=== PATIENT | female | born 1970 | race Two or more races ===

== ENCOUNTER 2025-01-16 12:37 | Emergency (ER) | payer MEDICAID, OTHER ==
[~2025-01-16] VITALS: Ht 162.6 cm; Wt 79.1 kg
--- NOTE | 2025-01-16 14:01 | ED.PDOC ---
HPI Comments A 54 YEAR OLD FEMALE PRESENTS TO THE ED WITH COMPLAINT OF 0N AND OFF HTN AND CHEST TIGHTNESS WITH BURNING PAIN SENSATION. PATIENT REPORTS THAT SHE HAS BEEN EXPERIENCING SUBSTERNAL CHEST TIGHTNESS AND BURNING SENSATION FOR THE PAST 10 DAYS. PATIENT RELAYS THAT HER BP HAS BEEN RUNNING HIGH OVER THE PAST 10 DAYS WELL. PATIENT STATES SHE TAKES LOSARTAN 50MG TWICE A DAY. PATIENT DENIES FEVER, CHILLS, SHORTNESS OF BREATH, ABDOMINAL PAIN, NAUSEA, VOMITING, HEADACHE, OR OTHER COMPLAINTS. NO OTHER SYMPTOMS OR MODIFYING FACTORS AT THIS TIME. PATIENT IS ALERT, ORIENTED X 4, AND HAS STEADY GAIT. Chief Complaint: High Blood Pressure Time Seen by MD: 14:00 Reviewed Notes: Nurses Notes, Medications, Allergies Allergies: Coded Allergies: Tramadol (Verified Allergy, Intermediate, 01/16/25) Home Meds Active Scripts Pantoprazole Sodium Sesquihydr (Protonix) 40 Mg Tab, 40 MG PO DAILY, #30 TAB Prov:FABIANA GUPTA CHRISTIANO 01/16/25 Information Source: Patient Mode of Arrival: Ambulatory Severity: Mild Timing: Days Duration: Since onset, Days Prehospital treatment: None Location: Substernal Radiation: No Radiation Quality: Aching, Tightness Onset: At Rest Cardiac Risk Factors: HTN, None PE Risk Factors: None History of: None Associated Signs and Symptoms: None Past Medical History PAST MEDICAL HISTORY: GERD, HTN Surgical History: Cholecystectomy 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 Family History Family History: Reviewed,noncontributory to illness Social History Smoker: Non-Smoker Alcohol: Denies ETOH Use Drugs: Denies Drug Use Lives In: Home Constitutional: denies: chills, diaphoresis, fatigue, fever, malaise, sweats, weakness, others EENTM: denies: blurred vision, double vision, ear bleeding, ear discharge, ear drainage, ear pain, ear ringing, eye pain, eye redness, hearing loss, mouth pain, mouth swelling, nasal discharge, nose bleeding, nose congestion, nose pain, photophobia, tearing, throat pain, throat swelling, voice changes, others Respiratory: denies: cough, hemoptysis, orthopnea, SOB at rest, shortness of breath, SOB with excertion, stridor, wheezing, others Cardiovascular: reports: chest pain; denies: dizzy spells, diaphoresis, Dyspnea on exertion, edema, irregular heart beat, left arm pain, lightheadedness, palpitations, PND, syncope, others Gastrointestinal: denies: abdomen distended, abdominal pain, blood streaked bowels, constipated, diarrhea, dysphagia, difficulty swallowing, hematemesis, melena, nausea, poor appetite, poor fluid intake, rectal bleeding, rectal pain, vomiting, others Genitourinary: denies: abnormal vagina bleeding, burning, dyspareunia, dysuria, flank pain, frequency, hematuria, incontinence, pain, , vagina discharge, urgency, others Neurological: denies: dizziness, fainting, headache, left sided numbness, left sided weakness, numbness, paresthesia, pre-existing deficit, right sided numbness, right sided weakness, seizure, speech problems, tingling, tremors, weakness, others Musculoskeletal: denies: back pain, gout, joint pain, joint swelling, muscle pain, muscle stiffness, neck pain, others Integumetry: denies: bruises, change in color, change in hair/nails, dryness, laceration, lesions, lumps, rash, wounds, others Allergic/Immunocompromised: denies: Difficulty Healing, Frequent Infections, Hives, Itching, others Hematologic/Lymphatic: denies: anemia, blood clots, easy bleeding, easy bruising, swollen glands, others Endocrine: denies: excessive hunger, excessive sweating, excessive thirst, excessive urination, flushing, intolerance to cold, intolerance to heat, unexplained weight gain, unexplained weight loss, others Psychiatric: reports: anxiety; denies: bipolar disorder, depression, hopeless, panic disorder, schizophrenia, sleepless, suicidal, others All Other Systems: Reviewed and Negative Physical Exam General Appearance: No Apparent Distress, Normal HEENT: Normal ENT Inspection, PERRL/EOMI, Pharynx Normal, TMs Normal Neck: Full Range of Motion, Non-Tender, Normal, Normal Inspection Respiratory: Lungs Clear, No Accessory Muscle Use, No Respiratory Distress, Normal Breath Sounds, Other (TENDERNESS MIDDLE STERNUM. ) Cardiovascular: No Edema, No JVD, No Murmur, No Gallop, Normal Peripheral Pulses, Regular Rate/Rhythm Breast Exam: Deferred Gastrointestinal: No Organomegaly, Non Tender, No Pulsatile Mass, Normal Bowel Sounds, Soft Genitalia: Deferred Pelvic: Deferred Rectal: Deferred Extremities: No calf tenderness, Normal capillary refill, Normal inspection, Normal range of motion, Non-tender, No pedal edema Musculoskeletal : Apperance: Normal Neurologic: Alert, power builder developer II-XII nml as Tested, No Motor Deficits, Normal Affect, Normal Mood, No Sensory Deficits Cerebellar Function: Normal Reflexes: Normal Skin: Dry, Normal Color, Warm Peripheral Pulses: 2+ carotid (R), 2+ carotid (L) Lymphatic: No Adenopathy EKG EKG : Pulse Rate (adult): 92 [place]: Normal Block: None Hypertrophy: None ST: Normal Was a procedure done? Was a procedure done?: No CP Differential Dx Differential Diagnosis: Anxiety / Panic Attack, Hyperventilation, KS Differential Diagnosis: HTN Essential Differential Diagnosis: Chest Wall Pain, Esophageal reflux/spasm X-Ray, Labs, Meds, VS Vital Signs Date Time Temp Pulse Resp B/P (MAP) Pulse Ox O2 Delivery O2 Flow Rate FiO2 01/16/25 15:32 92 01/16/25 13:26 92 01/16/25 12:41 98.0 109 18 121/67 98 98.0 Lab Test 01/16/25 13:41 Range/Units White Blood Count 8.7 4.4-10.8 10^3/uL Red Blood Count 4.97 4.0-5.20 10^6/uL Hemoglobin 15.3 12.2-16.2 g/dL Hematocrit 44.7 36.0-46.0 % Mean Corpuscular Volume 90.0 80.0-100.0 fL Mean Corpuscular Hemoglobin 30.7 28.0-32.0 pg Mean Corpuscular Hemoglobin Concent 34.1 32.0-36.0 g/dL Red Cell Distribution Width 12.8 11.8-14.3 % Platelet Count 222 140-450 10^3/uL Mean Platelet Volume 9.5 6.9-10.8 fL Neutrophils (%) (Auto) 71.5 37.0-80.0 % Lymphocytes (%) (Auto) 24.1 10.0-50.0 % Monocytes (%) (Auto) 3.3 0.0-12.0 % Eosinophils (%) (Auto) 0.5 0.0-7.0 % Basophils (%) (Auto) 0.6 0.0-2.0 % Neutrophils # (Auto) 6.2 1.6-8.6 10 ^3/uL Lymphocytes # (Auto) 2.1 0.4-5.4 10 ^3/uL Monocytes # (Auto) 0.3 0-1.3 10 ^3/uL Eosinophils # (Auto) 0 0-0.8 10 ^3/uL Basophils # (Auto) 0.1 0-0.2 10 ^3/uL Nucleated Red Blood Cells 0.0 % Sodium Level 142 136-145 mmol/L Potassium Level 3.6 3.5-5.1 mmol/L Chloride Level 103 98-107 mmol/L Carbon Dioxide Level 28 20-31 mmol/L Anion Gap 11 5-15 Blood Urea Nitrogen 10 9-23 mg/dL Creatinine 0.78 0.550-1.02 mg/dL Glomerular Filtration Rate Calc 91 >90 mL/min BUN/Creatinine Ratio 12.8 10.0-20.0 Serum Glucose 132 H 74-106 mg/dL Calcium Level 9.9 8.7-10.4 mg/dL Troponin I High Sensitivity < 3 L </=34 ng/L X-Ray, Labs, Meds, VS Comment EXTERNAL MEDICAL RECORDS REVIEWED: [NONE] INDEPENDENT HISTORIANS: [NONE] SOCIAL DETERMINANTS OF HEALTH: [NONE] LABS ORDERED: CBC, BMP, TROPONIN, EKG REVIEWED AND INTERPRETED RESULTS: NORMAL IMAGING ORDERED: NONE TREATMENTS ORDERED: NONE PROCEDURES PERFORMED: NONE CRITICAL CARE TIME: NONE I HAVE DISCUSSED THE PATIENT WITH THE ATTENDING PHYSICIAN DR. RODRIGUEZ AND HE AGR EES WITH THE PATIENT'S PLAN OF CARE AND DISPOSITION. BASED ON HISTORY OF PRESENT ILLNESS, AND PHYSICAL EXAM, PATIENT WILL BE DI SCHARGED HOME. DISCUSSED PLAN FOR DISCHARGE HOME. SHARED DECISION MAKING: DISCUSSED WITH PATIENT THAT THEIR WORKUP WAS NORMAL. PATIENT INSTRUCTED TO FOLLOW UP WITH PRIMARY CARE PROVIDER IN 1-2 DAYS FOR RE- EVALUATION OF SYMPTOMS. PATIENT VERBALIZES UNDERSTANDING TO RETURN TO ED FOR NEW OR WORSENING SYMPTOMS OR IF FOLLOW UP WITH PCP CANNOT BE OBTAINED. PATIENT FEELS COMFORTABLE GOING HOME AT THIS TIME. ALL QUESTIONS ADDRESSED AT TIME OF DISCHARGE. Time of 1ST Reevaluation: 14:15 Reevaluation 1ST: Unchanged Patient Education/Counseling: Diagnosis, Treatment Family Education/Counseling: No Family Present SEPSIS Sepsis Screen Date sepsis recognized/suspect: Jan 16, 2025 Time Sepsis recognized/suspect: 1245 Recent Procedure: No On Antibiotic Therapy: No Respiratory Rate >20: No Heart Rate >90: No Temp<36 C (96.8 F) or >38.3 C: No SBP <90 or MAP <65 mmHG: No New Acute Mental Status Change: No Is the patient on CPAP, BIPAP,: No Physician Orders Electrocardigram (01/16/25 13:19) Vital Signs Date Time Temp Pulse Resp B/P (MAP) Pulse Ox O2 Delivery O2 Flow Rate FiO2 01/16/25 15:32 92 01/16/25 13:26 92 01/16/25 12:41 98.0 109 18 121/67 98 98.0 Laboratory Tests Test 01/16/25 13:41 White Blood Count 8.7 10^3/uL (4.4-10.8) Departure 1 Departure Time of Disposition: 15:52 Impression: Primary Impression: HTN (hypertension) Qualified Codes: I10 - Essential (primary) hypertension Additional Impression: GERD (gastroesophageal reflux disease) Qualified Codes: K21.9 - Gastro-esophageal reflux disease without esophagitis Disposition: HOME / SELF CARE / HOMELESS Condition: Stable Additional Instructions: FOLLOW-UP WITH PCP IN 1 TO 2 DAYS. TAKE MEDICATIONS PRESCRIBED. RETURN TO ED FOR ANY NEW OR WORSENING SYMPTOMS. e-Prescriptions Pantoprazole Sodium Sesquihydr (Protonix) 40 Mg Tab 40 MG PO DAILY, #30 TAB Prov: FAIBANA GUPTA 01/16/25 Discharged With: Self Critical Care Note Critical Care Time?: No Stability Stability form required: No Heart Score Heart Score: Heart Score Response (Comments) Value History Moderate Suspicious 1 EKG Normal 0 Age 45-64 1 Risk Factors 1 or 2 risk factors 1 Troponin Normal limit 0 Total 3 I personally scribed for FABIANA GUPTA ([email or web address]) on 01/16/25 at 14:01. Electronically submitted by Saqib Roche ([email or web address]). I personally scribed for FABIANA GUPTA ([email or web address]) on 01/16/25 at 15:38. Electronically submitted by Saqib Roche ([email or web address]). FABIANA GUPTA Jan 16, 2025 14:01
[2025-01-16 14:20] LABS: Chloride 103 mmol/L (98-107); Hematocrit 44.7 % (36.0-46.0); Hemoglobin 15.3 g/dL (12.2-16.2); Mean Corpuscular Hemoglobin 30.7 pg (28.0-32.0); Mean Corpuscular Volume 90.0 fL (80.0-100.0); Nucleated Red Blood Cells % 0.0 %; Potassium 3.6 mmol/L (3.5-5.1); Sodium 142 mmol/L (136-145)
[2025-01-16 14:21] LABS: Anion Gap 11 (5-15); Carbon Dioxide 28 mmol/L (20-31)
[2025-01-16 14:22] LABS: Calcium 9.9 mg/dL (8.7-10.4)
[2025-01-16 14:27] LABS: BUN/Creatinine Ratio 12.8 (10.0-20.0); Blood Urea Nitrogen 10 mg/dL (9-23)
[2025-01-16 14:36] LABS: Glucose 132 mg/dL (74-106)
[2025-01-16] MEDS ORDERED: PANT40TA2 PO (15:44)
[2025-01-16 15:49] VITALS: BP 108/81; PULSE 88; RESP 16; TEMP 97.9; O2SAT 95
--- NOTE | 2025-01-17 17:28 | ECG ---
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
== END 2025-01-16 15:52 | disposition home or self-care (01) ==
LOC: ER 12:37
DX: I10 Essential (primary) hypertension (principal); K21.9 Gastro-esophageal reflux disease without esophagitis; Z79.899 Other long term (current) drug therapy; Z88.5 Allergy status to narcotic agent; Z90.49 Acquired absence of other specified parts of digestive tract
CPT/HCPCS: 36415; 80048; 84484; 85025; 93005

== ENCOUNTER 2025-02-22 17:12 | Inpatient (IN) | payer MEDICAID ==
[~2025-02-22] VITALS: Ht 162.6 cm; Wt 78.5 kg
[~2025-02-22 17:12] MED LIST: PANT40TA2 PO
[2025-02-22 17:55] LABS: Hematocrit 39.3 % (36.0-46.0); Hemoglobin 13.7 g/dL (12.2-16.2); Mean Corpuscular Hemoglobin 31.3 pg (28.0-32.0); Mean Corpuscular Volume 89.4 fL (80.0-100.0); Nucleated Red Blood Cells % 0.0 %
[2025-02-22 18:03] LABS: Chloride 103 mmol/L (98-107); Potassium 3.6 mmol/L (3.5-5.1); Sodium 139 mmol/L (136-145)
[2025-02-22 18:04] LABS: Calcium 10.3 mg/dL (8.7-10.4)
[2025-02-22 18:09] LABS: BUN/Creatinine Ratio 15.0 (10.0-20.0)
--- NOTE | 2025-02-22 18:10 | ED.PDOC ---
HPI (NEURO) HPI Comments This is a 54 year old female presenting to the ED with chief complaint of dizziness. Patient reports that she has been experiencing dizziness with associated nausea, headache and anxiety since 12pm today. Patient relays that she noted that her BP was more elevated than usual today, so she took 2 doses of her BP medication with relief in her BP now noted in triage. Patient notes her symptoms have not gone away. Patient denies any chest pain, SOB, vomiting, diarrhea, abdominal pain, or syncope. 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 Hx Family History Family History: Reviewed,noncontributory to illness Social History Smoker: Non-Smoker Alcohol: Denies ETOH Use Drugs: Denies Drug Use Lives In: Home Constitutional: denies: chills, diaphoresis, fatigue, fever, malaise, sweats, weakness, others EENTM: denies: blurred vision, double vision, ear bleeding, ear discharge, ear drainage, ear pain, ear ringing, eye pain, eye redness, hearing loss, mouth pain, mouth swelling, nasal discharge, nose bleeding, nose congestion, nose pain, photophobia, tearing, throat pain, throat swelling, voice changes, others Respiratory: denies: cough, hemoptysis, orthopnea, SOB at rest, shortness of breath, SOB with excertion, stridor, wheezing, others Cardiovascular: denies: chest pain, dizzy spells, diaphoresis, Dyspnea on exertion, edema, irregular heart beat, left arm pain, lightheadedness, palpitations, PND, syncope, others Gastrointestinal: reports: nausea; denies: abdomen distended, abdominal pain, blood streaked bowels, constipated, diarrhea, dysphagia, difficulty swallowing, hematemesis, melena, poor appetite, poor fluid intake, rectal bleeding, rectal pain, vomiting, others Genitourinary: denies: abnormal vagina bleeding, burning, dyspareunia, dysuria, flank pain, frequency, hematuria, incontinence, pain, , vagina discharge, urgency, others Neurological: reports: dizziness, headache; denies: fainting, left sided numbness, left sided weakness, numbness, paresthesia, pre-existing deficit, right sided numbness, right sided weakness, seizure, speech problems, tingling, tremors, weakness, others Musculoskeletal: denies: back pain, gout, joint pain, joint swelling, muscle pain, muscle stiffness, neck pain, others Integumetry: denies: bruises, change in color, change in hair/nails, dryness, laceration, lesions, lumps, rash, wounds, others Allergic/Immunocompromised: denies: Difficulty Healing, Frequent Infections, Hives, Itching, others Hematologic/Lymphatic: denies: anemia, blood clots, easy bleeding, easy bruisin g, swollen glands, others Endocrine: denies: excessive hunger, excessive sweating, excessive thirst, excessive urination, flushing, intolerance to cold, intolerance to heat, unexplained weight gain, unexplained weight loss, others Psychiatric: reports: anxiety; denies: bipolar disorder, depression, hopeless, panic disorder, schizophrenia, sleepless, suicidal, others All Other Systems: Reviewed and Negative Physical Exam General Appearance: No Apparent Distress, Other (Anxious appearing) HEENT: Normal ENT Inspection, Pharynx Normal, TMs Normal Neck: Full Range of Motion, Non-Tender, Normal, Normal Inspection Respiratory: Chest Non-Tender, Lungs Clear, No Accessory Muscle Use, No Respiratory Distress, Normal Breath Sounds Cardiovascular: No Edema, No JVD, No Murmur, No Gallop, Normal Peripheral Pulses, Regular Rate/Rhythm Breast Exam: Deferred Gastrointestinal: No Organomegaly, Non Tender, No Pulsatile Mass, Normal Bowel Sounds, Soft Genitalia: Deferred Pelvic: Deferred Rectal: Deferred Extremities: No calf tenderness, Normal capillary refill, Normal inspection, Normal range of motion, Non-tender, No pedal edema Musculoskeletal : Apperance: Normal Neurologic: Alert, museum registrar II-XII nml as Tested, No Motor Deficits, Normal Affect, Normal Mood, No Sensory Deficits Cerebellar Function: Normal Reflexes: Normal Skin: Dry, Normal Color, Warm Lymphatic: No Adenopathy Was a procedure done? Was a procedure done?: No Differential Diagnosis (SZ) Seizure: N/A CVA: Hypoxemia Headache: Cluster, Migraine, CVA, Subarachnoid Hemorrhage, Subdural Hemorrhage, Mass Lesion, Sinusitis X-Ray, Labs, Meds, VS Vital Signs Date Time Temp Pulse Resp B/P (MAP) Pulse Ox O2 Delivery O2 Flow Rate FiO2 02/22/25 17:24 85 02/22/25 17:15 97.7 84 18 144/80 99 97.7 Lab Test 02/22/25 18:22 02/22/25 17:41 02/22/25 17:27 Range/Units Troponin I High Sensitivity < 3 L < 3 L </=34 ng/L White Blood Count 10.2 4.4-10.8 10^3/uL Red Blood Count 4.39 4.0-5.20 10^6/uL Hemoglobin 13.7 12.2-16.2 g/dL Hematocrit 39.3 36.0-46.0 % Mean Corpuscular Volume 89.4 80.0-100.0 fL Mean Corpuscular Hemoglobin 31.3 28.0-32.0 pg Mean Corpuscular Hemoglobin Concent 34.9 32.0-36.0 g/dL Red Cell Distribution Width 12.7 11.8-14.3 % Platelet Count 195 140-450 10^3/uL Mean Platelet Volume 9.8 6.9-10.8 fL Neutrophils (%) (Auto) 81.1 H 37.0-80.0 % Lymphocytes (%) (Auto) 15.4 10.0-50.0 % Monocytes (%) (Auto) 2.9 0.0-12.0 % Eosinophils (%) (Auto) 0.1 0.0-7.0 % Basophils (%) (Auto) 0.5 0.0-2.0 % Neutrophils # (Auto) 8.2 1.6-8.6 10 ^3/uL Lymphocytes # (Auto) 1.6 0.4-5.4 10 ^3/uL Monocytes # (Auto) 0.3 0-1.3 10 ^3/uL Eosinophils # (Auto) 0 0-0.8 10 ^3/uL Basophils # (Auto) 0 0-0.2 10 ^3/uL Nucleated Red Blood Cells 0.0 % Sodium Level 139 136-145 mmol/L Potassium Level 3.6 3.5-5.1 mmol/L Chloride Level 103 98-107 mmol/L Carbon Dioxide Level 22 20-31 mmol/L Anion Gap 14 5-15 Blood Urea Nitrogen 9 9-23 mg/dL Creatinine 0.60 0.550-1.02 mg/dL Glomerular Filtration Rate Calc 107 >90 mL/min BUN/Creatinine Ratio 15.0 10.0-20.0 Serum Glucose 125 H 74-106 mg/dL Calcium Level 10.3 8.7-10.4 mg/dL POC Glucose 131 H 70-106 mg/dl Time of 1ST Reevaluation: 19:05 Reevaluation 1ST: Improved Patient Education/Counseling: Diagnosis, Treatment Family Education/Counseling: No Family Present Departure 1 Departure Time of Disposition: 20:15 (Patient home with worsening dizziness and weakness. With the patient for further workup and expert consultation) Impression: Primary Impression: Near syncope Additional Impression: Generalized weakness Disposition: ADMITTED INPATIENT Admit to: Med Surg Condition: Serious Critical Care Note Critical Care Time?: No Stability Stability form required: No Heart Score Heart Score: Heart Score Response (Comments) Value History N/A 0 EKG N/A 0 Age N/A 0 Risk Factors N/A 0 Troponin N/A 0 Total 0 I personally scribed for ELI ESQUIVEL MD ([email or web address]) on 02/22/25 at 18:10. Electronically submitted by Saqib Roche ([email or web address]). ELI ESQUIVEL MD Feb 22, 2025 18:10
--- NOTE | 2025-02-22 18:11 | DVH ---
CHEST RADIOGRAPH Indication: dizziness Technique: Single frontal view of the chest was obtained Comparison: None FINDINGS: Lines and Tubes: None Lungs: No focal consolidation. Pleura: No effusion. No pneumothorax. Cardiomediastinal contours: Unremarkable Bones: No acute osseous abnormality. IMPRESSION: 1. No acute cardiopulmonary disease.
[2025-02-22 18:13] LABS: Blood Urea Nitrogen 9 mg/dL (9-23); Glucose 125 mg/dL (74-106)
[2025-02-22 18:54] LABS: Anion Gap 14 (5-15); Carbon Dioxide 22 mmol/L (20-31)
--- NOTE | 2025-02-22 18:57 | DVH ---
EXAM: CT HEAD WITHOUT CONTRAST INDICATION: dizziness TECHNIQUE: CT of the head without intravenous contrast. Radiation Dose : 1. Head: CT Dose: CTDI volume is 53.99 mGy. Dose-length product is 863.9 mGy*cm The dose indicators for CT are the volume Computed Tomography (CT) Dose Index (CTDIvol) and the Dose Length Product (DLP), and are measured in units of mGy and mGy-cm, respectively. These indicators are not patient dose, but values generated from the CT scanner acquisition factors. The report includes radiation exposure data for exposures received during this examination. COMPARISON: None FINDINGS: There is no evidence of acute intracranial hemorrhage, extra-axial collection, mass effect, midline shift, herniation or hydrocephalus. The ventricles, sulci and cisterns are age appropriate. The stahl-white differentiation is intact. The visualized paranasal sinuses and mastoid air cells are clear. The surrounding soft tissues and osseous structures are unremarkable. IMPRESSION: No acute intracranial abnormality. Radiation optimization: All CT scans at this facility use at least one of these dose optimization techniques: automated exposure control mA and/or kV adjustment per patient size (includes targeted exams where dose is matched to clinical indication) or iterative reconstruction.
[2025-02-22] MEDS: METOCLOPRAMIDE HCL 5MG/ml INJ 2ml VIAL IV ONE (21:40)
[2025-02-22] MEDS: ACETAMINOPHEN 325 MG TAB PO ONE (21:40)
[2025-02-22] MEDS: KETOROLAC TROMETH 30 MG/ML 1ML VIAL IV ONE (21:40)
--- NOTE | 2025-02-22 22:42 | DVHHPRES ---
History of Present Illness Resident Creating Document: SILAS OWEN History of Present Illness Ms Laura Pimentel, 54-year-old Moldovan-speaking female with past medical history of hypertension presented to the ER with the complaints of headache and nausea and vomiting. On home blood pressure monitoring it was higher than usual, 140s and and 90s. She reports the global headache started since last 2 months, intermittent. She does not have any diarrhea, no recent sick contacts or travel history. Vomiting not mixed with blood. She also reports having chest pain, describing is pressure-like sensation, radiating to back. She also reports having gastritis. She denies any chest pain, shortness of breath, fever, urinary symptoms, constipation or any other complaints. Past medical history: As above Past surgical history: Cholecystectomy Allergies: None Denies drugs, alcohol, smoking. Family history: Noncontributory Code status: Full code Review of Systems Allergies: Coded Allergies: Tramadol (Verified Allergy, Intermediate, 01/16/25) Exam Vital Signs Vital Signs Date Time Temp Pulse Resp B/P (MAP) Pulse Ox O2 Delivery O2 Flow Rate FiO2 02/22/25 21:38 98.1 82 16 138/88 (105) 100 98.1 Labs/Xrays Labs Test 02/22/25 20:50 02/22/25 17:41 02/22/25 17:27 Range/Units Troponin I High Sensitivity < 3 L </=34 ng/L White Blood Count 10.2 4.4-10.8 10^3/uL Red Blood Count 4.39 4.0-5.20 10^6/uL Hemoglobin 13.7 12.2-16.2 g/dL Hematocrit 39.3 36.0-46.0 % Mean Corpuscular Volume 89.4 80.0-100.0 fL Mean Corpuscular Hemoglobin 31.3 28.0-32.0 pg Mean Corpuscular Hemoglobin Concent 34.9 32.0-36.0 g/dL Red Cell Distribution Width 12.7 11.8-14.3 % Platelet Count 195 140-450 10^3/uL Mean Platelet Volume 9.8 6.9-10.8 fL Neutrophils (%) (Auto) 81.1 H 37.0-80.0 % Lymphocytes (%) (Auto) 15.4 10.0-50.0 % Monocytes (%) (Auto) 2.9 0.0-12.0 % Eosinophils (%) (Auto) 0.1 0.0-7.0 % Basophils (%) (Auto) 0.5 0.0-2.0 % Neutrophils # (Auto) 8.2 1.6-8.6 10 ^3/uL Lymphocytes # (Auto) 1.6 0.4-5.4 10 ^3/uL Monocytes # (Auto) 0.3 0-1.3 10 ^3/uL Eosinophils # (Auto) 0 0-0.8 10 ^3/uL Basophils # (Auto) 0 0-0.2 10 ^3/uL Nucleated Red Blood Cells 0.0 % Sodium Level 139 136-145 mmol/L Potassium Level 3.6 3.5-5.1 mmol/L Chloride Level 103 98-107 mmol/L Carbon Dioxide Level 22 20-31 mmol/L Anion Gap 14 5-15 Blood Urea Nitrogen 9 9-23 mg/dL Creatinine 0.60 0.550-1.02 mg/dL Glomerular Filtration Rate Calc 107 >90 mL/min BUN/Creatinine Ratio 15.0 10.0-20.0 Serum Glucose 125 H 74-106 mg/dL Calcium Level 10.3 8.7-10.4 mg/dL POC Glucose 131 H 70-106 mg/dl SEPSIS Sepsis Screen Date sepsis recognized/suspect: Feb 22, 2025 Time Sepsis recognized/suspect: 2137 Recent Procedure: No On Antibiotic Therapy: No Respiratory Rate >20: No Heart Rate >90: No Temp<36 C (96.8 F) or >38.3 C: No SBP <90 or MAP <65 mmHG: No New Acute Mental Status Change: No Is the patient on CPAP, BIPAP,: No Physician Orders Electrocardigram (02/22/25 17:32) Urinalysis (02/22/25 17:31) Chest Portable (02/22/25 17:31) Head Without Contrast (02/22/25 18:04) Vital Signs Date Time Temp Pulse Resp B/P (MAP) Pulse Ox O2 Delivery O2 Flow Rate FiO2 02/22/25 21:38 98.1 82 16 138/88 (105) 100 98.1 02/22/25 17:24 85 02/22/25 17:15 97.7 84 18 144/80 99 97.7 Laboratory Tests Test 02/22/25 17:41 White Blood Count 10.2 10^3/uL (4.4-10.8) Medications Medications Dose Ordered Sig/Naeem Route Start Time Stop Time Status Last Admin Dose Admin Acetaminophen 650 mg ONCE ONCE PO 02/22/25 20:15 02/22/25 20:54 DC 02/22/25 21:40 650 MG Ketorolac Tromethamine 15 mg ONCE ONCE IV 02/22/25 20:15 02/22/25 20:54 DC 02/22/25 21:40 15 MG Metoclopramide HCl 10 mg ONCE ONCE IV 02/22/25 20:15 02/22/25 20:54 DC 02/22/25 21:40 10 MG Assessment/Plan Assessment/Plan Chest pain rule out ACS Hypertensive heart disease EKG: No acute ischemic changes Troponins: Within normal limits Losartan potassium 50 mg daily Tylenol for headache Hyperglycemia HbA1c ordered GI prophylaxis: Pantoprazole DVT prophylaxis: Patient is ambulatory Diet: Cardiac Goals of care discussed with the patient for more than 27 minutes: Full code status Case discussed with Dr. Wilkins, patient and RN Plan discussed with: Patient, Other Visit Coding STANDARD RES Billing Provider: ARAMIS WILKINS MD Date of Service if different f: Feb 23, 2025 Common Visit Codes: 63803-DHXKEOB INP/OBS CARE (HIGH) Secondary Visit Codes: 51885-OSRHESTN CARE PLAN 30 MINUTES SILAS OWEN Feb 22, 2025 22:42
[2025-02-22] MEDS ORDERED: LOSA-534 PO (22:46)
[2025-02-22] MEDS ORDERED: AMLO1TAB21 PO (22:46)
[2025-02-22] MEDS ORDERED: ROSU10TA64 PO (22:46)
[2025-02-22 23:40] LABS: Urine Protein, UAD Negative (Negative)
[2025-02-23] VITALS (8 sets, daily range): BP systolic 109–117; BP diastolic 72–74; PULSE 81–91; RESP 17–20; TEMP 96.7–98.1; O2SAT 95–98
[2025-02-23 04:21] LABS: Hematocrit 40.1 % (36.0-46.0); Hemoglobin 13.5 g/dL (12.2-16.2); Mean Corpuscular Hemoglobin 30.5 pg (28.0-32.0); Mean Corpuscular Volume 90.5 fL (80.0-100.0); Nucleated Red Blood Cells % 0.1 %
[2025-02-23 04:47] LABS: Alanine Aminotransferase 27 U/L (7-40); Anion Gap 12 (5-15); BUN/Creatinine Ratio 14.7 (10.0-20.0); Blood Urea Nitrogen 11 mg/dL (9-23); Calcium 10.2 mg/dL (8.7-10.4); Carbon Dioxide 26 mmol/L (20-31); Chloride 104 mmol/L (98-107); Glucose 90 mg/dL (74-106); Potassium 3.6 mmol/L (3.5-5.1); Sodium 142 mmol/L (136-145); Total Protein 8.0 g/dL (5.7-8.2)
[2025-02-23 05:00] LABS: Albumin 5.2 g/dL (3.2-4.8); Alkaline Phosphatase 130 U/L (46-116); Bilirubin, Total 1.3 mg/dL (0.2-1.0)
[2025-02-23] MEDS: LOSARTAN POTASSIUM 50 MG TAB PO SCH (09:59)
[2025-02-23] MEDS: PANTOPRAZOLE 40 MG TAB PO SCH (10:06)
[2025-02-23] MEDS ORDERED: [UNRECOGNIZED DRUG - CODE] PO (16:45)
[2025-02-23] MEDS ORDERED: ERGO1CAP12 PO (16:45)
[2025-02-23] MEDS: ATORVASTATIN 20 MG TAB PO SCH (21:20)
[2025-02-24] VITALS (9 sets, daily range): BP systolic 104–144; BP diastolic 62–90; PULSE 69–87; RESP 16–18; TEMP 98–98.2; O2SAT 97–99
--- NOTE | 2025-02-24 11:56 | DVHPN2 ---
Reviewed: Care Plan, H&P, Labs, Medications, Previous Orders Changes from previous H/P or p: No Changes General: Per HPI Objective Vitals Vital Signs Date Time Temp Pulse Resp B/P (MAP) Pulse Ox O2 Delivery O2 Flow Rate FiO2 02/24/25 09:00 98.1 75 16 132/88 (103) 97 98.1 02/24/25 08:05 Room Air* 0 21 Intake/Output Intake and Output 02/24/25 07:00 Intake Total 540 ml Balance 540 ml Intake Oral 540 ml # Voids 1 General Appearance: Alert, Oriented X3, Cooperative, No acute distress Cardiovascular: Regular rate, Normal S1, Normal S2 Neuro: Normal gait, Normal speech Medications Current Medications Medications Dose Ordered Sig/Naeem Route Start Time Stop Time Status Last Admin Dose Admin Losartan Potassium 50 mg DAILY PO 02/23/25 10:00 02/24/25 08:52 50 MG Pantoprazole Sodium 40 mg DAILY PO 02/23/25 10:00 02/24/25 08:52 40 MG Atorvastatin Calcium 10 mg HS PO 02/23/25 22:00 02/23/25 21:20 10 MG Acetaminophen 500 mg Q8HP PRN PO 02/23/25 04:00 Laboratory Results Laboratory Tests 02/23/25 03:35 Urinalysis Test 02/22/25 21:54 Urine Color Colorless (Yellow) Urine Clarity Clear (Clear) Urine pH 6.0 (5.0-9.0) Urine Specific [place] 1.002 (1.001-1.035) Urine Protein Negative (Negative) Urine Ketones Negative (Negative) Urine Blood Negative /uL (Negative) Urine Nitrite Negative (Negative) Urine Bilirubin Negative (Negative) Urine Urobilinogen Normal mg/dL (Negative) Urine Leukocyte Esterase Negative /uL (Negative) Urine RBC 1 /hpf (0 - 4) Urine Microscopic WBC < 1 /HPF (0-5) Urine Squamous Epithelial Cells Few /hpf (<5) Urine Bacteria None seen /hpf (None Seen) Urine Glucose Normal mg/dL (Normal) Labs and/or images reviewed: Labs reviewed by me, Image(s) reviewed by me Assessment/Plan Assessment/Plan Ms Laura Pimentel, 54-year-old Vietnamese-speaking female with past medical history of hypertension presented to the ER with the complaints of headache and nausea and vomiting. On home blood pressure monitoring it was higher than usual, 140s and and 90s. She reports the global headache started since last 2 months, intermittent. She does not have any diarrhea, no recent sick contacts or travel history. Vomiting not mixed with blood. She also reports having chest pain, describing is pressure-like sensation, radiating to back. She also reports having gastritis. She denies any chest pain, shortness of breath, fever, urinary symptoms, constipation or any other complaints. Chest pain rule out ACS -- high risk group Hypertensive heart disease EKG: No acute ischemic changes Troponins: Within normal limits Losartan potassium 50 mg daily Tylenol for headache pending ECHO Hyperglycemia HbA1c ordered GI prophylaxis: Pantoprazole DVT prophylaxis: Patient is ambulatory Diet: Cardiac Plan discussed with: Patient Date of Service: Feb 23, 2025 Billing Provider: JHONNY WOODALL DO Common Visit Codes: [id number] INP/OBS CARE(HIGH) JHONNY WOODALL DO Feb 24, 2025 11:56
--- NOTE | 2025-02-24 11:59 | DVHPN2 ---
Reviewed: Care Plan, H&P, Labs, Medications, Previous Orders Changes from previous H/P or p: No Changes General: Per HPI Objective Vitals Vital Signs Date Time Temp Pulse Resp B/P (MAP) Pulse Ox O2 Delivery O2 Flow Rate FiO2 02/24/25 09:00 98.1 75 16 132/88 (103) 97 98.1 02/24/25 08:05 Room Air* 0 21 Intake/Output Intake and Output 02/24/25 07:00 Intake Total 540 ml Balance 540 ml Intake Oral 540 ml # Voids 1 General Appearance: Alert, Oriented X3, Cooperative, No acute distress Cardiovascular: Regular rate, Normal S1, Normal S2 Neuro: Normal gait, Normal speech Medications Current Medications Medications Dose Ordered Sig/Naeem Route Start Time Stop Time Status Last Admin Dose Admin Losartan Potassium 50 mg DAILY PO 02/23/25 10:00 02/24/25 08:52 50 MG Pantoprazole Sodium 40 mg DAILY PO 02/23/25 10:00 02/24/25 08:52 40 MG Atorvastatin Calcium 10 mg HS PO 02/23/25 22:00 02/23/25 21:20 10 MG Acetaminophen 500 mg Q8HP PRN PO 02/23/25 04:00 Laboratory Results Laboratory Tests 02/23/25 03:35 Urinalysis Test 02/22/25 21:54 Urine Color Colorless (Yellow) Urine Clarity Clear (Clear) Urine pH 6.0 (5.0-9.0) Urine Specific [place] 1.002 (1.001-1.035) Urine Protein Negative (Negative) Urine Ketones Negative (Negative) Urine Blood Negative /uL (Negative) Urine Nitrite Negative (Negative) Urine Bilirubin Negative (Negative) Urine Urobilinogen Normal mg/dL (Negative) Urine Leukocyte Esterase Negative /uL (Negative) Urine RBC 1 /hpf (0 - 4) Urine Microscopic WBC < 1 /HPF (0-5) Urine Squamous Epithelial Cells Few /hpf (<5) Urine Bacteria None seen /hpf (None Seen) Urine Glucose Normal mg/dL (Normal) Labs and/or images reviewed: Labs reviewed by me, Image(s) reviewed by me Assessment/Plan Assessment/Plan Ms Laura Pimentel, 54-year-old Divehi-speaking female with past medical history of hypertension presented to the ER with the complaints of headache and nausea and vomiting. On home blood pressure monitoring it was higher than usual, 140s and and 90s. She reports the global headache started since last 2 months, intermittent. She does not have any diarrhea, no recent sick contacts or travel history. Vomiting not mixed with blood. She also reports having chest pain, describing is pressure-like sensation, radiating to back. She also reports having gastritis. She denies any chest pain, shortness of breath, fever, urinary symptoms, constipation or any other complaints. Chest pain rule out ACS -- high risk group Hypertensive heart disease EKG: No acute ischemic changes Troponins: Within normal limits Losartan potassium 50 mg daily Tylenol for headache pending ECHO Hyperglycemia HbA1c ordered GI prophylaxis: Pantoprazole DVT prophylaxis: Patient is ambulatory Diet: Cardiac pending echocardiogram Plan discussed with: Patient Date of Service: Feb 24, 2025 Billing Provider: JHONNY WOODALL DO Common Visit Codes: [id number] INP/OBS CARE(HIGH) JHONNY WOODALL DO Feb 24, 2025 11:59
[2025-02-24] MEDS: ACETAMINOPHEN 500 MG TAB or CAP PO PRN (13:54)
[2025-02-24] MEDS: ONDANSETRON HCL 4 MG/2 ML VIAL IV PRN (15:30)
--- NOTE | 2025-02-24 23:57 | DVHINCON2 ---
Date of service: Feb 24, 2025 Referring Physician Sarah Reason for Consultation Echo History of Present Illness This is a 54-year-old Dutch-speaking female with a past medical history of hypertension who presented to the ED with complaints of a headache and nausea and vomiting. On home blood pressure monitoring it was higher than usual, 140s and and 90s. She reports the global headache started since last 2 months, intermittent. She does not have any diarrhea, no recent sick contacts or travel history. She also reports having chest pain, describing is pressure-like sensation, radiating to back. She also reports having gastritis. Lab workup is grossly unremarkable. Chest x-ray showed NAD. CT head shows no acute intracranial abnormality. Troponin is negative. Patient was admitted to the hospital. I am asked to consult on this patient. Family History: Cardiovascular disease G8 MOTHER Diabetes mellitus G8 MOTHER Hypertension G8 MOTHER Allergies: Coded Allergies: Tramadol (Verified Allergy, Intermediate, 01/16/25) Home Meds Active Scripts Pantoprazole Sodium Sesquihydr (Protonix) 40 Mg Tab, 40 MG PO DAILY, #30 TAB Prov:FABIANA GUPTA 01/16/25 Reported Medications Venlafaxine Hydrochloride (Venlafaxine Hydrochloride) 37.5 Mg Tab, 1 TAB PO DAILY 02/23/25 Ergocalciferol (Vitamin D) 50,000 Unit Cap, 1 CAP PO QWEEKLY 02/23/25 Rosuvastatin Calcium (Rosuvastatin Calcium) 10 Mg Tab, 10 TAB PO 02/22/25 Amlodipine Besylate (Amlodipine Besylate) 2.5 Mg Tab, 2.5 MG PO 02/22/25 Losartan Potassium (Losartan Potassium) 50 Mg Tab, 1 TAB PO DAILY 02/22/25 Current Medications Current Medications Medications (Trade) Dose Ordered Sig/Naeem Route PRN Reason Start Time Stop Time Status Last Admin Atorvastatin Calcium (Lipitor) 10 mg HS PO 02/23/25 22:00 02/23/25 21:20 Review of Systems Constitutional: denies: chills, diaphoresis, fatigue, fever, malaise, sweats, weakness, others EENTM: denies: blurred vision, double vision, ear bleeding, ear discharge, ear drainage, ear pain, ear ringing, eye pain, eye redness, hearing loss, mouth pain, mouth swelling, nasal discharge, nose bleeding, nose congestion, nose pain, photophobia, tearing, throat pain, throat swelling, voice changes, others Respiratory: denies: cough, hemoptysis, orthopnea, SOB at rest, shortness of breath, SOB with excertion, stridor, wheezing, others Cardiovascular: denies: chest pain, dizzy spells, diaphoresis, Dyspnea on exertion, edema, irregular heart beat, left arm pain, lightheadedness, palpitations, PND, syncope, others Gastrointestinal: reports: nausea; denies: abdomen distended, abdominal pain, blood streaked bowels, constipated, diarrhea, dysphagia, difficulty swallowing, hematemesis, melena, poor appetite, poor fluid intake, rectal bleeding, rectal pain, vomiting, others Genitourinary: denies: abnormal vagina bleeding, burning, dyspareunia, dysuria, flank pain, frequency, hematuria, incontinence, pain, , vagina discharge, urgency, others Neurological: reports: dizziness, headache; denies: fainting, left sided numbness, left sided weakness, numbness, paresthesia, pre-existing deficit, right sided numbness, right sided weakness, seizure, speech problems, tingling, tremors, weakness, others Musculoskeletal: denies: back pain, gout, joint pain, joint swelling, muscle pain, muscle stiffness, neck pain, others Integumetry: denies: bruises, change in color, change in hair/nails, dryness, laceration, lesions, lumps, rash, wounds, others Allergic/Immunocompromised: denies: Difficulty Healing, Frequent Infections, Hives, Itching, others Hematologic/Lymphatic: denies: anemia, blood clots, easy bleeding, easy bruising, swollen glands, others Endocrine: denies: excessive hunger, excessive sweating, excessive thirst, excessive urination, flushing, intolerance to cold, intolerance to heat, unexplained weight gain, unexplained weight loss, others Psychiatric: reports: anxiety; denies: bipolar disorder, depression, hopeless, panic disorder, schizophrenia, sleepless, suicidal, others All Other Systems: Reviewed and Negative Vital Signs Vital Signs Date Time Temp Pulse Resp B/P (MAP) Pulse Ox O2 Delivery O2 Flow Rate FiO2 02/24/25 09:00 98.1 75 16 132/88 (103) 97 98.1 02/24/25 08:05 Room Air* 0 21 Physical Exam GENERAL: Alert and oriented x 3. No acute distress. EYES: PERRL, EOMI. Anicteric. HENT: Moist mucous membranes. LUNGS: Clear to auscultation bilaterally. CARDIOVASCULAR: Regular rate and rhythm. ABDOMEN: Soft, nontender and nondistended. EXTREMITIES: No edema. NEUROLOGIC: No focal neurological deficits. SKIN: Warm, dry. Labs/Diagnostic Data Labs Test 02/23/25 03:35 02/22/25 21:54 02/22/25 20:50 02/22/25 17:27 Range/Units White Blood Count 10.1 4.4-10.8 10^3/uL Red Blood Count 4.43 4.0-5.20 10^6/uL Hemoglobin 13.5 12.2-16.2 g/dL Hematocrit 40.1 36.0-46.0 % Mean Corpuscular Volume 90.5 80.0-100.0 fL Mean Corpuscular Hemoglobin 30.5 28.0-32.0 pg Mean Corpuscular Hemoglobin Concent 33.7 32.0-36.0 g/dL Red Cell Distribution Width 12.7 11.8-14.3 % Platelet Count 201 140-450 10^3/uL Mean Platelet Volume 9.8 6.9-10.8 fL Neutrophils (%) (Auto) 66.4 37.0-80.0 % Lymphocytes (%) (Auto) 27.2 10.0-50.0 % Monocytes (%) (Auto) 5.3 0.0-12.0 % Eosinophils (%) (Auto) 0.6 0.0-7.0 % Basophils (%) (Auto) 0.5 0.0-2.0 % Neutrophils # (Auto) 6.7 1.6-8.6 10 ^3/uL Lymphocytes # (Auto) 2.8 0.4-5.4 10 ^3/uL Monocytes # (Auto) 0.5 0-1.3 10 ^3/uL Eosinophils # (Auto) 0.1 0-0.8 10 ^3/uL Basophils # (Auto) 0 0-0.2 10 ^3/uL Nucleated Red Blood Cells 0.1 % Sodium Level 142 136-145 mmol/L Potassium Level 3.6 3.5-5.1 mmol/L Chloride Level 104 98-107 mmol/L Carbon Dioxide Level 26 20-31 mmol/L Anion Gap 12 5-15 Blood Urea Nitrogen 11 9-23 mg/dL Creatinine 0.75 0.550-1.02 mg/dL Glomerular Filtration Rate Calc 95 >90 mL/min BUN/Creatinine Ratio 14.7 10.0-20.0 Serum Glucose 90 74-106 mg/dL Hemoglobin A1c 5.3 <5.7 % A1C Calcium Level 10.2 8.7-10.4 mg/dL Total Bilirubin 1.3 H 0.2-1.0 mg/dL Aspartate Amino Transferase (AST) 19 13-40 U/L Alanine Aminotransferase (ALT) 27 7-40 U/L Alkaline Phosphatase 130 H 46-116 U/L Total Protein 8.0 5.7-8.2 g/dL Albumin 5.2 H 3.2-4.8 g/dL Vitamin B12 Level 418 211-911 pg/mL Vitamin D 25-Hydroxy 51.9 30.0-100 ng/mL Thyroid Stimulating Hormone (TSH) 2.11 0.55-4.78 uIU/mL Urine Color Colorless Yellow Urine Clarity Clear Clear Urine pH 6.0 5.0-9.0 Urine Specific [place] 1.002 1.001-1.035 Urine Protein Negative Negative Urine Ketones Negative Negative Urine Blood Negative Negative /uL Urine Nitrite Negative Negative Urine Bilirubin Negative Negative Urine Urobilinogen Normal Negative mg/dL Urine Leukocyte Esterase Negative Negative /uL Urine RBC 1 0 - 4 /hpf Urine Microscopic WBC < 1 0-5 /HPF Urine Squamous Epithelial Cells Few <5 /hpf Urine Bacteria None seen None Seen /hpf Urine Glucose Normal Normal mg/dL Troponin I High Sensitivity < 3 L </=34 ng/L POC Glucose 131 H 70-106 mg/dl Assessment Chest pain. Hypertensive heart disease. Hyperglycemia. Plan/Recommendation I agree with your ongoing assessment and care of plan. Echocardiogram. Lipitor. Losartan. GI prophylactics. Additional plan as per the hospital course. A total of 45 minutes was spent reviewing the patient record, examining the patient, making a diagnostic and therapeutic plan, discussing this plan with medical personnel, following up on diagnostic studies and following the patient for clinical stability excluding any and all procedures. At least 50% of this time was spent in direct, [id number] contact. Plan discussed with: Patient ARASH OLIVER MD Feb 24, 2025 13:21
[2025-02-25 01:00] VITALS: BP 117/73; PULSE 66; RESP 18; TEMP 97.9; O2SAT 97
[2025-02-25 05:00] VITALS: BP 120/72; PULSE 85; RESP 18; TEMP 97.8; O2SAT 96
--- NOTE | 2025-02-25 06:39 | ECG ---
[facility] Test Date: 2025-02-22 Test Time: 17:24:44 Pat Name: JOEL DAVIES Department: Room: 0220T Gender: F Beverage Specialist: JAMIE : 1970 Requested By: ELI ESQUIVEL Order Number: [id number] Reading MD: Lionel Rutherford Measurements Intervals [place] Rate: 85 P: 77 [place]: 166 QRS: 73 QRSD: 86 T: 74 QT: 407 QTc: 484 Interpretive Statements Sinus rhythm Abnormal R-wave progression, early transition ST elevation, consider inferior injury Electronically Signed On 02-28-2025 19:01:45 PST by Lionel Rutherford Please click the below link to view image of tracing.
[2025-02-25 08:00] VITALS: PULSE 100; PULSE 82; RESP 16; O2SAT 98
[2025-02-25 09:00] VITALS: BP 137/90; PULSE 82; RESP 16; TEMP 98.4; O2SAT 98
[2025-02-25 13:00] VITALS: BP 133/85; PULSE 93; RESP 16; TEMP 97.8; O2SAT 97
--- NOTE | 2025-02-25 14:19 | DVHPN2 ---
Progress Note - Dictate Date Seen: Feb 25, 2025 Medical Necessity Reason Pt with a Central, PICC or Fol: No Subjective Patient was seen and evaluated in follow up. Patient reports feeling anxious today. Denies any chest pain or SOB. Echcardiogram is pending. Telemetry reviewed. vital signs Vital Sign Date Time Temp Pulse Resp B/P (MAP) Pulse Ox O2 Delivery O2 Flow Rate FiO2 02/25/25 13:00 97.8 93 16 133/85 (101) 97 97.8 02/25/25 08:00 Room Air* 0 21 Total Intake and Output 02/24/25 02/24/25 02/25/25 15:00 23:00 07:00 Intake Total 720 ml 1000 ml Balance 720 ml 1000 ml medications Current Medications Medications Dose Ordered Sig/Naeem Route Start Time Stop Time Status Last Admin Dose Admin Losartan Potassium 50 mg DAILY PO 02/23/25 10:00 02/25/25 10:27 50 MG Pantoprazole Sodium 40 mg DAILY PO 02/23/25 10:00 02/25/25 10:27 40 MG Atorvastatin Calcium 10 mg HS PO 02/23/25 22:00 02/24/25 21:43 10 MG Acetaminophen 500 mg Q8HP PRN PO 02/23/25 04:00 02/24/25 13:54 500 MG Ondansetron HCl 4 mg Q4HPRN PRN IV 02/24/25 15:15 02/24/25 15:30 4 MG objective GENERAL: Alert and oriented x 3. No acute distress. EYES: PERRL, EOMI. Anicteric. HENT: Moist mucous membranes. LUNGS: Clear to auscultation bilaterally. CARDIOVASCULAR: Regular rate and rhythm. ABDOMEN: Soft, nontender and nondistended. EXTREMITIES: No edema. NEUROLOGIC: No focal neurological deficits. SKIN: Warm, dry. laboratory and microbiology Laboratory Tests 02/23/25 03:35 Test 02/23/25 03:35 Range/Units Serum Glucose 90 74-106 mg/dL Problem List Chest pain. Hypertensive heart disease. Hyperglycemia. Assessment/Plan Continued all current supportive medical care. Echocardiogram. Lipitor. Losartan. GI prophylactics. Additional plan as per the hospital course. Plan discussed with: Patient ARASH OLIVER MD Feb 25, 2025 14:19
[2025-02-25 14:22] VITALS: BP 137/90; PULSE 98; RESP 18; TEMP 36.6; O2SAT 98
--- NOTE | 2025-02-25 16:05 | DVHDS2 ---
Discharge Summary Date of Admission Feb 22, 2025 at 22:44 Date of Discharge: Feb 25, 2025 Labs/Diagnostic Data: Laboratory Results Test 02/23/25 03:35 02/22/25 21:54 02/22/25 20:50 02/22/25 17:27 White Blood Count 10.1 10^3/uL (4.4-10.8) Red Blood Count 4.43 10^6/uL (4.0-5.20) Hemoglobin 13.5 g/dL (12.2-16.2) Hematocrit 40.1 % (36.0-46.0) Mean Corpuscular Volume 90.5 fL (80.0-100.0) Mean Corpuscular Hemoglobin 30.5 pg (28.0-32.0) Mean Corpuscular Hemoglobin Concent 33.7 g/dL (32.0-36.0) Red Cell Distribution Width 12.7 % (11.8-14.3) Platelet Count 201 10^3/uL (140-450) Mean Platelet Volume 9.8 fL (6.9-10.8) Neutrophils (%) (Auto) 66.4 % (37.0-80.0) Lymphocytes (%) (Auto) 27.2 % (10.0-50.0) Monocytes (%) (Auto) 5.3 % (0.0-12.0) Eosinophils (%) (Auto) 0.6 % (0.0-7.0) Basophils (%) (Auto) 0.5 % (0.0-2.0) Neutrophils # (Auto) 6.7 10 ^3/uL (1.6-8.6) Lymphocytes # (Auto) 2.8 10 ^3/uL (0.4-5.4) Monocytes # (Auto) 0.5 10 ^3/uL (0-1.3) Eosinophils # (Auto) 0.1 10 ^3/uL (0-0.8) Basophils # (Auto) 0 10 ^3/uL (0-0.2) Nucleated Red Blood Cells 0.1 % Sodium Level 142 mmol/L (136-145) Potassium Level 3.6 mmol/L (3.5-5.1) Chloride Level 104 mmol/L (98-107) Carbon Dioxide Level 26 mmol/L (20-31) Anion Gap 12 (5-15) Blood Urea Nitrogen 11 mg/dL (9-23) Creatinine 0.75 mg/dL (0.550-1.02) Glomerular Filtration Rate Calc 95 mL/min (>90) BUN/Creatinine Ratio 14.7 (10.0-20.0) Serum Glucose 90 mg/dL (74-106) Hemoglobin A1c 5.3 % A1C (<5.7) Calcium Level 10.2 mg/dL (8.7-10.4) Total Bilirubin 1.3 mg/dL (0.2-1.0) Aspartate Amino Transferase (AST) 19 U/L (13-40) Alanine Aminotransferase (ALT) 27 U/L (7-40) Alkaline Phosphatase 130 U/L (46-116) Total Protein 8.0 g/dL (5.7-8.2) Albumin 5.2 g/dL (3.2-4.8) Vitamin B12 Level 418 pg/mL (211-911) Vitamin D 25-Hydroxy 51.9 ng/mL (30.0-100) Thyroid Stimulating Hormone (TSH) 2.11 uIU/mL (0.55-4.78) Urine Color Colorless (Yellow) Urine Clarity Clear (Clear) Urine pH 6.0 (5.0-9.0) Urine Specific [place] 1.002 (1.001-1.035) Urine Protein Negative (Negative) Urine Ketones Negative (Negative) Urine Blood Negative /uL (Negative) Urine Nitrite Negative (Negative) Urine Bilirubin Negative (Negative) Urine Urobilinogen Normal mg/dL (Negative) Urine Leukocyte Esterase Negative /uL (Negative) Urine RBC 1 /hpf (0 - 4) Urine Microscopic WBC < 1 /HPF (0-5) Urine Squamous Epithelial Cells Few /hpf (<5) Urine Bacteria None seen /hpf (None Seen) Urine Glucose Normal mg/dL (Normal) Troponin I High Sensitivity < 3 ng/L (</=34) POC Glucose 131 mg/dl (70-106) Other Laboratory Tests 02/23/25 03:35 Brief Hx & Hospital Course: Ms Laura Pimentel, 54-year-old Surinamese-speaking female with past medical history of hypertension presented to the ER with the complaints of headache and nausea and vomiting. On home blood pressure monitoring it was higher than usual, 140s and and 90s. She reports the global headache started since last 2 months, intermittent. She does not have any diarrhea, no recent sick contacts or travel history. Vomiting not mixed with blood. She also reports having chest pain, describing is pressure-like sensation, radiating to back. She also reports having gastritis. She denies any chest pain, shortness of breath, fever, urinary symptoms, constipation or any other complaints. All workup for CAD negative with troponins, seen by cardiology and cleared for discharge Condition at Discharge: Good Final Diagnosis/Problems List chest pain due to musculoskeletal Discharge Disposition: Home Discharge Instruct/Medications Diet: Regular Activity: No Restrictions, As Tolerated Follow Up/Referral: PCP in 7 days Medications: home medications Scheduled Ergocalciferol (Vitamin D), 1 CAP PO QWEEKLY, (Reported) Losartan Potassium (Losartan Potassium), 1 TAB PO DAILY, (Reported) Pantoprazole Sodium Sesquihydr (Protonix), 40 MG PO DAILY Venlafaxine Hydrochloride (Venlafaxine Hydrochloride), 1 TAB PO DAILY, (Reported) Miscellaneous Medications Amlodipine Besylate (Amlodipine Besylate), 2.5 MG PO, (Reported) Rosuvastatin Calcium (Rosuvastatin Calcium), 10 TAB PO, (Reported) Discharge Statement: "Patient was advised to return to the ER or call 911 if any headaches, dizziness, shortness of breath, chest pain, abdominal pain, bleeding, fevers, or worsening of medical condition. Patient was counseled about treatment plan, medications, possible side effects, patientverbalized understanding. All questions were answered to the best of my ability. This discharge took greater then 30 minutes in planning, reviewing documentation, counseling the patient, and discussing with other team members." ASSESSMENT ASSESSMENT Assessment Date of Service: Feb 25, 2025 Billing Provider: SHANTELLE LO MD Common Visit Codes: [id number] DISCH DAY >30min SHANTELLE LO MD Feb 25, 2025 16:05
--- NOTE | 2025-02-27 08:23 | DVHSR ---
APPROVED REPORT EXAM: Two-dimensional and M-mode echocardiogram with Doppler and color Doppler. Blood Pressure: 132/88 mmHg INDICATION Chest Pain RISK FACTORS Height: 64, Weight: 175 DIMENSIONS LVDd (3.8-5.7cm) LA (2D) 4.0 (1.9-4.0cm) Aortic Root 3.4 (2.0-3.7cm) LVDs (2.5-4.0cm) LA (MM) (1.9-4.0cm) Aortic Cusp Exc 2.0 (1.5-2.0cm) EF (%) 63.0 (55-70%) Rt. Atrium 4.1 (1.9-4.0cm) Asc. Aorta cm Mitral Valve Mitral Mitral Stenosis E wave 0.63m/s MV Mean GR. mmHg A wave 0.90m/s MV Peak GR. mmHg E/A ratio 0.7 2D MVA cm2 DECEL Time 324ms PRESS 1/2 Time 68ms IVRT ms Dop MVA 3.22cm2 Aortic Valve Aortic Valve Aortic Stenosis V1 1.03m/s AO Mean GR. 5mmHg V2 1.56m/s AO Peak GR. 10mmHg LVOT Diameter 2.1 (1.8-2.4cm) Doppler JEY 2.29cm2 Pulmonic Valve V2 1.07m/s Conclusion LV EF IS 65% NORMAL VALVES NORMAL RV FUNCTION NO EFFUSION
== END 2025-02-25 16:00 | disposition home or self-care (01) | DRG 243 ==
LOC: ER 17:12 → OVERFLOW 22:44 → TELE-CENTR 02-23 14:34
PROVIDERS: ADMIT Hospitalist; ATTEND Hospitalist
DX: K21.9 Gastro-esophageal reflux disease without esophagitis (principal); I24.9 Acute ischemic heart disease, unspecified; I11.9 Hypertensive heart disease without heart failure; R07.89 Other chest pain; F41.9 Anxiety disorder, unspecified; R73.9 Hyperglycemia, unspecified; Z83.3 Family history of diabetes mellitus; Z82.49 Family history of ischemic heart disease and other diseases of the circulatory system; Z90.49 Acquired absence of other specified parts of digestive tract; Z88.8 Allergy status to other drugs, medicaments and biological substances; K29.70 Gastritis, unspecified, without bleeding
CPT/HCPCS: 36415; 70450; 71045; 80048; 80053; 81001; 82306; 82607; 82962; 83036; 84443; 84484; 85025; 93005; 93306; 96374; 96375; G0378; J1885; J2405